=== PATIENT | female | born 1970 | race Caucasian/White ===

== ENCOUNTER 2018-07-21 10:24 | Emergency (ER) | payer MEDICAID ==
[~2018-07-21] VITALS: Ht 152.4 cm; Wt 70.3 kg
[2018-07-21 10:31] VITALS: BP 153/69; Ht 152.4 cm; Wt 70.3 kg
== END 2018-07-21 11:25 | disposition home or self-care (01) ==
LOC: ED 10:24
DX: L02.415 Cutaneous abscess of right lower limb (principal)
CPT/HCPCS: J3010

== ENCOUNTER 2018-07-23 17:56 | Emergency (ER) | payer MEDICAID ==
[~2018-07-23] VITALS: Ht 157.5 cm; Wt 70.3 kg
[2018-07-23 18:06] VITALS: BP 124/86; Ht 157.5 cm; Wt 70.3 kg
== END 2018-07-23 20:45 | disposition home or self-care (01) ==
LOC: ED 17:56
DX: L08.9 Local infection of the skin and subcutaneous tissue, unspecified (principal); M79.661 Pain in right lower leg

== ENCOUNTER 2018-10-28 09:14 | Emergency (ER) | payer MEDICAID ==
[~2018-10-28] VITALS: Ht 149.9 cm; Wt 68.5 kg
[2018-10-28 09:21] VITALS: Ht 149.9 cm; Wt 68.5 kg
[2018-10-28 10:05] LABS: microscopic required? NO
[2018-10-28 10:10] LABS: BASOPHIL % 0.8 % (0-2); PLATELET COUNT 284 x10^3mcL (130-400); RED CELL DISTRIBUTION WIDTH 11.9 % (11.5-14.5)
[2018-10-28 10:12] LABS: UA SPECIFIC GRAVITY <=1.005 (1.005-1.035); urine erythrocyte NEGATIVE (NEGATIVE)
[2018-10-28 10:20] LABS: CALCIUM 9.4 mg/dL (8.5-10.1); CARBON DIOXIDE 27.9 mmol/L (21-32); CHLORIDE SERUM 104 mmol/L (98-107); CREATININE SERUM 0.6 mg/dL (0.6-1.0); GFR1 > 60 mL/min; GLUCOSE SERUM 172 mg/dL (74-106); POTASSIUM SERUM 4.1 mmol/L (3.5-5.1); SODIUM SERUM 143 mmol/L (136-145)
[2018-10-28 10:24] LABS: ALBUMIN 3.6 g/dL (3.4-5.0); ALKALINE PHOSPHATASE 75 U/L (46-116); ALT/SGPT 23 U/L (14-59); AST/SGOT 9 U/L (15-37); BILIRUBIN TOTAL 0.86 mg/dL (0.20-1.00); LIPASE 75 IU/L (73-393); TOTAL PROTEIN, SERUM 7.4 g/dL (6.4-8.2)
[2018-10-28 11:26] VITALS: BP 129/63
== END 2018-10-28 11:26 | disposition home or self-care (01) ==
LOC: ED 09:14
PROVIDERS: Emergency Medicine
DX: R10.84 Generalized abdominal pain (principal); M54.5 Low back pain; E11.9 Type 2 diabetes mellitus without complications
CPT/HCPCS: J1885; J2405

== ENCOUNTER 2019-01-09 08:30 | Emergency (ER) | payer MEDICAID ==
[~2019-01-09] VITALS: Ht 152.4 cm; Wt 69.4 kg
[2019-01-09 08:43] VITALS: Ht 152.4 cm; Wt 69.4 kg
[2019-01-09 11:16] VITALS: BP 112/68
== END 2019-01-09 11:16 | disposition home or self-care (01) ==
LOC: ED 08:30
DX: R51 Headache (principal); R42 Dizziness and giddiness; E11.9 Type 2 diabetes mellitus without complications